=== PATIENT | female | born 1990 | race Caucasian/White ===

== ENCOUNTER 2019-11-02 20:51 | Inpatient (IN) | payer OTHER ==
[2019-11-02 22:24] LABS: BLOOD UREA NITROGEN,BUN 12 mg/dL (7.0-18.0); CARBON DIOXIDE,CO2 19.3 mmol/L (21.0-32.0); CHLORIDE,CL 106 mmol/L (98-107); GLUCOSE RANDOM 94 mg/dL (74-106); POTASSIUM,K 4.1 mmol/L (3.5-5.1); SODIUM,NA 139 mmol/L (136-145)
[2019-11-03] MEDS: Lactated Ringers 1,000 ML IV SCH ×4 (00:30→12:01)
[2019-11-03] MEDS ORDERED: Sodium Chloride 0.9% 10 ML Syringe FLUSH PRN (00:34)
[2019-11-03] MEDS ORDERED: Sodium Chloride 0.9% 10 ML SDV IV PRN (00:34)
[2019-11-03] MEDS ORDERED: Citric Acid/Sodium Citrate Solution 30 ML Cup PO ONE (00:34)
[2019-11-03] MEDS ORDERED: Sodium Chloride 0.9% 2.5 ML Syringe FLUSH PRN (00:34)
[2019-11-03] MEDS ORDERED: Oxytocin/0.9 % Sodium Chloride 30 UNIT/500 ML BAG IV SCH (00:45)
[2019-11-03] MEDS ORDERED: Morphine PF 10 MG/10 ML SDV ONE (00:57)
[2019-11-03] MEDS ORDERED: Oxytocin 10 Units/1 ML SDV ONE ×2 (01:04→02:28)
[2019-11-03] MEDS ORDERED: Phenylephrine/Normal Saline 100 MCG/ML 10 ML Syringe ONE ×2 (01:04→02:19)
[2019-11-03] MEDS ORDERED: Ondansetron 4 MG/2 ML SDV ONE (01:04)
[2019-11-03] MEDS ORDERED: Acetaminophen/oxyCODONE 325-5 MG Tab PO PRN ×3 (01:15→04:45)
[2019-11-03] MEDS ORDERED: fentaNYL 100 MCG/2 ML SDV IVPUSH PRN (01:15)
[2019-11-03] MEDS ORDERED: Nalbuphine 10 MG/1 ML Vial IVPUSH PRN (01:15)
--- NOTE | 2019-11-03 01:15 | PCM.PREANE ---
Preanesthetic Assessment - Anesthesia/Transfusion/Family Hx Anesthesia History: Prior Anesthesia Without Reaction Family History of Anesthesia Reaction: No - Review of Systems General: No Symptoms Pulmonary: No Symptoms Cardiovascular: No Symptoms Gastrointestinal: No Symptoms Neurological: No Symptoms Other: Reports: None - Physical Assessment NPO Status Date: 11/02/19 NPO Status Time: 18:00 Height: 5 ft 8 in Weight: 127.006 kg ASA Class: 2 Airway Class: Mallampati = 2 Dentition: Reports: Normal Dentition ROM/Head Extension: Full Lungs: Clear to Auscultation, Normal Respiratory Effort Cardiovascular: Regular Rate, Regular Rhythm - Lab Values: Laboratory Last Values WBC 20.80 K/uL (4.0-11.0) H 11/02/19 21:55 RBC 4.55 M/uL (4.30-5.90) 11/02/19 21:55 Hgb 13.1 g/dL (12.0-16.0) 11/02/19 21:55 Hct 38.1 % (36.0-46.0) 11/02/19 21:55 MCV 83.7 fL (80.0-98.0) 11/02/19 21:55 MCH 28.8 pg (27.0-32.0) 11/02/19 21:55 MCHC 34.4 g/dL (31.0-37.0) 11/02/19 21:55 RDW Std Deviation 41.3 fl (28.0-62.0) 11/02/19 21:55 RDW Coeff of Chemo 14 % (11.0-15.0) 11/02/19 21:55 Plt Count 333 K/uL (150-400) 11/02/19 21:55 MPV 10.30 fL (7.40-12.00) 11/02/19 21:55 Nucleated RBC % 0.0 /100WBC 11/02/19 21:55 Nucleated RBCs # 0 K/uL 11/02/19 21:55 Sodium 139 mmol/L (136-145) 11/02/19 21:55 Potassium 4.1 mmol/L (3.5-5.1) 11/02/19 21:55 Chloride 106 mmol/L (98-107) 11/02/19 21:55 Carbon Dioxide 19.3 mmol/L (21.0-32.0) L 11/02/19 21:55 BUN 12 mg/dL (7.0-18.0) 11/02/19 21:55 Creatinine 0.7 mg/dL (0.6-1.0) 11/02/19 21:55 Est Cr Clr Drug Dosing 117.47 mL/min 11/02/19 21:55 Estimated GFR (MDRD) > 60.0 ml/min 11/02/19 21:55 Glucose 94 mg/dL (74-106) 11/02/19 21:55 Uric Acid 6.8 mg/dL (2.6-7.2) 11/02/19 21:55 Calcium 8.9 mg/dL (8.5-10.1) 11/02/19 21:55 Total Bilirubin 0.1 mg/dL (0.2-1.0) L 11/02/19 21:55 AST 9 IU/L (15-37) L 11/02/19 21:55 ALT 11 IU/L (14-63) L 11/02/19 21:55 Alkaline Phosphatase 105 U/L (46-116) 11/02/19 21:55 Total Protein 6.8 g/dL (6.4-8.2) 11/02/19 21:55 Albumin 2.8 g/dL (3.4-5.0) L 11/02/19 21:55 Globulin 4.0 g/dL (2.6-4.0) 11/02/19 21:55 Albumin/Globulin Ratio 0.7 (0.9-1.6) L 11/02/19 21:55 Urine Color YELLOW 11/02/19 21:29 Urine Appearance SLT CLOUDY 11/02/19 21:29 Urine pH 6.5 (5.0-8.0) 11/02/19 21:29 Ur Specific Grady 1.025 (1.001-1.035) 11/02/19 21:29 Urine Protein NEGATIVE mg/dL (NEGATIVE) 11/02/19 21:29 Urine Glucose (UA) NEGATIVE mg/dL (NEGATIVE) 11/02/19 21:29 Urine Ketones NEGATIVE mg/dL (NEGATIVE) 11/02/19 21:29 Urine Occult Blood NEGATIVE (NEGATIVE) 11/02/19 21:29 Urine Nitrite NEGATIVE (NEGATIVE) 02/03/20 21:29 Urine Bilirubin NEGATIVE (NEGATIVE) 11/02/19 21:29 Urine Urobilinogen 0.2 EU/dL (<2.0) 11/02/19 21:29 Ur Leukocyte Esterase TRACE (NEGATIVE) H 11/02/19 21:29 - Allergies Allergies/Adverse Reactions: Allergies Allergy/AdvReac Type Severity Reaction Status Date / Time Latex, Natural Rubber Allergy Rash Verified 11/02/19 21:26 pseudoephedrine HCl Allergy Rash Verified 11/02/19 21:26 [From [facility]] - Blood Blood Available: No - Anesthesia Plan Pre-Op Medication Ordered: None - Acknowledgements Anesthesia Type Planned: Spinal Pt an Appropriate Candidate for the Planned Anesthesia: Yes Alternatives and Risks of Anesthesia Discussed w Pt/Guardian: Yes Pt/Guardian Understands and Agrees with Anesthesia Plan: Yes Additional Comments: 36 weels. primip. brerech, elevated BPs for several weeks- on mo meds for it PLAN: spinat with it duramorph PreAnesthesia Questionnaire - Past Health History Medical/Surgical History: Denies Medical/Surgical History - Past Surgical History Other HEENT Surgeries/Procedures: sinus surgery - HOME MEDS Home Medications: Home Meds Aspirin 81 mg PO DAILY 11/02/19 [History] Cetirizine [ZyrTEC] 1 tab PO DAILY 11/02/19 [History] Pnv No.95/Ferrous Fum/Folic AC [ Tablet] 1 tab PO DAILY 11/02/19 [ History] - CURRENT (IN HOUSE) MEDS Current Meds: Current Medications Oxytocin/Sodium Chloride (Oxytocin 30 Unit/500 Ml-Ns) 30 unit in 500 mls @ 250 mls/hr IV TITRATE AMA Lactated Ringer's (Ringers, Lactated) 1,000 mls @ 500 mls/hr IV BOLUS AMA Last Admin: 11/03/19 00:30 Dose: 999 mls/hr Cefazolin Sodium/Dextrose 3 gm (/ Premix) 75 mls @ 100 mls/hr IV ONETIME ONE Stop: 11/03/19 01:42 Sodium Chloride (Saline Flush) 10 ml FLUSH ASDIRECTED PRN PRN Reason: Keep Vein Open Sodium Chloride (Saline Flush) 2.5 ml FLUSH ASDIRECTED PRN PRN Reason: Keep Vein Open Sodium Chloride (Normal Saline) 10 ml IV ASDIRECTED PRN PRN Reason: IV Use Discontinued Medications Citric Acid/Sodium Citrate (Bicitra Solution) 30 ml PO ONETIME ONE Stop: 11/03/19 00:35 Last Admin: 11/03/19 01:11 Dose: 30 ml Morphine Sulfate (Duramorph Pf) Confirm Administered Dose 10 mg .ROUTE .STK-MED ONE Stop: 11/03/19 00:58 Ondansetron HCl (Zofran) Confirm Administered Dose 4 mg .ROUTE .STK-MED ONE Stop: 11/03/19 01:05 Oxytocin (Pitocin) Confirm Administered Dose 20 unit .ROUTE .STK-MED ONE Stop: 11/03/19 01:05 Phenylephrine HCl (Phenylephrine In Ns 100 Mcg/Ml) Confirm Administered Dose 1 mg .ROUTE .STK-MED ONE Stop: 11/03/19 01:05
[2019-11-03] MEDS ORDERED: ceFAZolin 1 GM Vial ONE (01:27)
[2019-11-03] MEDS ORDERED: Sodium Chloride 0.9% 20 ML ONE (01:27)
[2019-11-03] MEDS ORDERED: Midazolam 1 MG/ML 2 ML SDV ONE ×2 (02:53→03:12)
[2019-11-03] MEDS ORDERED: fentaNYL 100 MCG/2 ML SDV ONE ×2 (03:11→04:02)
[2019-11-03] MEDS ORDERED: Propofol 200 MG/20 ML SDV ONE ×3 (03:24→04:02)
--- NOTE | 2019-11-03 04:08 | CR ---
Indication: Missing lap sponge during Caesarean section Technique: Abdomen 1 view, 2 films Comparison: None Findings/Impression: Two submitted images show a hemostat overlying the right hemipelvis and a linear density overlying the L5 vertebral body consistent with a radiopaque foreign body/sponge. Dictated by Randolph Berry MD @ Nov 03 2019 4:03AM Signed by Dr. Randolph Berry @ Nov 03 2019 4:08AM
[2019-11-03] MEDS ORDERED: Tranexamic Acid 1,000 MG in Sodium Chloride 0.9% 100 ML IV PRN (04:45)
[2019-11-03] MEDS ORDERED: Bisacodyl 10 MG Supp RECTAL PRN (04:45)
[2019-11-03] MEDS ORDERED: Misoprostol 200 MCG Tab RECTAL PRN (04:45)
[2019-11-03] MEDS ORDERED: Lanolin 100% Cream 7 GM Tube TOP PRN (04:45)
[2019-11-03] MEDS ORDERED: Oxytocin/Lactated Ringers 30 UNIT/500 ML BAG IV SCH (04:45)
[2019-11-03] MEDS ORDERED: Methylergonovine 0.2 MG/1 ML Amp IM PRN (04:45)
[2019-11-03] MEDS ORDERED: diphenhydrAMINE 50 MG/ML SDV IVPUSH PRN (04:45)
[2019-11-03] MEDS ORDERED: Ondansetron 4 MG/2 ML SDV IVPUSH PRN (04:45)
[2019-11-03] MEDS ORDERED: Oxytocin 10 Units/1 ML SDV IM PRN (04:45)
--- NOTE | 2019-11-03 04:55 | PCM.OPNOTE ---
- General Post-Op/Procedure Note Date of Surgery/Procedure: 11/03/19 Operative Procedure(s): Primary lower transverse Findings: Live female delivered at 220am , 7/9 weight 2710g Pre Op Diagnosis: 29yo @ 36w3d with. Superimposed Preclampsia with severe features. Breech presentation Post-Op Diagnosis: same Anesthesia Technique: Spinal Primary Surgeon: Latricia Fischer Anesthesia Provider: Tamanna Aden Gas Meter Installer: Trupti Mortensen Pathology: Placenta Fluid Replacement, Intraop: 2,200 Output, Urine Amount: 300 EBL in mLs: 100 Complications: None Condition: Good
--- NOTE | 2019-11-03 05:07 | PCM.POSTAN ---
POST ANESTHESIA ASSESSMENT - MENTAL STATUS Mental Status: Alert, Oriented - RESPIRATORY Respiratory Status: Respiratory Rate WNL, Airway Patent, O2 Saturation Stable - CARDIOVASCULAR CV Status: Pulse Rate WNL, Blood Pressure Stable - GASTROINTESTINAL GI Status: No Symptoms - POST OP HYDRATION Hydration Status: Adequate & Stable
--- NOTE | 2019-11-03 06:11 | OR ---
SURGEON: LIANNE YOUNG DATE OF PROCEDURE:11/04/2019 PREOPERATIVE DIAGNOSIS: A 29-year-old, G2, P-0-0-1-0 at 36 weeks 3 days with superimposed preeclampsia Breech presentation. POSTOPERATIVE DIAGNOSIS: A 29-year-old, G2, P-0-0-1-0 at 36 weeks 3 days with Superimposed preeclampsia with severe features Breech presentation. PROCEDURE: Primary low segment section. ESTIMATED BLOOD LOSS: 1000. IV FLUIDS: 2200. URINE OUTPUT: 300. ANESTHESIA: Spinal. ANESTHESIOLOGIST: Dr. Smith COMPLICATIONS: None NOTES AND FINDING: A live female delivered in breech presentation at 2:20 a.m., score 7 and 9. weight 2840g Also, there was a missing lap in the right lumbar region , which was confirmed to be in the abdomen. The lap was retrieved in the right lumbar region, and lap count was then complete. BRIEF HISTORY: The patient is a 29-year-old, G2, P0-0-1-0 at 36 weeks 3 days, who has been followed for chronic hypertension. She was placed on aspirin for preclampsia prophylaxis. She had uncomplicated course. However,at last visit 1 week ago, she developed increasing blood pressure. She had received a dose of steroids. Her blood pressures were ranging between 130s to 140s/80s - 90s At this time, she was asymptomatic. The patient called back today and BPs 130s- 160s/80 - 90s and said she was having headaches and blurry vision and right upper quadrant pain. PIH labs were done which were normal and as a result of this, the patient was counseled for a because the baby was in breech presentation. She declined an ECV. She was explained the risks, benefits, and alternatives and she decided to proceed. DESCRIPTION OF PROCEDURE: The patient was taken to the operating room where spinal anesthesia was performed without difficulty. She was prepared and draped in the dorsal supine position with a leftward tilt. A Pfannenstiel skin incision was made with a scalpel and carried down to the fascia with the Bovie. The fascia was incised and extended upwards and laterally. The rectus muscle was in the midline, down to the level of the pubic symphysis. The peritoneum was entered in with the aid of the hemostat and then Metzenbaum scissors. The peritoneum was exposed and extended laterally to expose the bladder reflection. The Bjorn retractor was placed in to give good visualization of the lower uterine segment. The bladder flap was created. The lower uterine incision was made and extended with the bandage scissors. The infant was noted to be footling breech and was extracted without any difficulty. Delayed cord clamping was observed. The cord was clamped and cord blood gases were obtained. The placenta was delivered via manual massage of the uterine fundus. The uterine cavity was then cleaned with moist laparotomy sponges to remove all membranes. Uterus was closed in 2 layers, 1st layer was an interlocking layer with 0 Vicryl. The 2nd layer was with 0 Monocryl. The adnexa were inspected, was noted to be normal. The right and left ovaries were normal. Hemostasis was noted. The Bjorn retractor was removed. The gutters were cleaned with moist laparotomy sponges. The peritoneum was then closed with 2-0 Vicryl and the muscle was approximated in the midline raphe with 0 Vicryl also. The sponge count was done and was noted to be incomplete. It was looked for throughout the operating room and was not found. So x-ray was ordered and was noted to be in the right lumbar region. The peritoneum was opened and the lap sponge was retrieved. The peritoneum was then closed again after lap count was complete. The peritoneum was approximated. The muscle was approximated in the raphe with 2-0 Vicryl, and the fascia was then closed with 0 Vicryl in a continuous fashion. The subcutaneous fat was closed with plain gut and the skin was closed with 3-0 Monocryl on a Vikas needle. Sabrina dressing was placed on the incision. All instrument and lap counts were correct x2. The patient tolerated the procedure well and was taken to the Labor and Delivery suite in stable condition. PEPE RODGERS /[id number] ALBERT
[2019-11-03] MEDS: Ketorolac 30 MG/ML SDV IVPUSH SCH ×3 (06:32→17:41)
--- NOTE | 2019-11-03 09:08 | PCM48HPAN ---
Post Anesthesia Note - EVALUATION WITHIN 48HRS OF ANESTHETIC Vital Signs in Normal Range: Yes Patient Participated in Evaluation: Yes Respiratory Function Stable: Yes Airway Patent: Yes Cardiovascular Function Stable: Yes Hydration Status Stable: Yes Pain Control Satisfactory: Yes Nausea and Vomiting Control Satisfactory: Yes Mental Status Recovered: Yes Vital Signs: Last Vital Signs Temp 36.0 C 11/03/19 08:00 Pulse 59 L 11/03/19 08:00 Resp 18 11/03/19 08:00 BP 101/49 L 11/03/19 08:00 Pulse Ox 96 11/03/19 08:00
[2019-11-03] MEDS: Docusate Sodium 100 MG Cap PO SCH ×2 (11:39→22:29)
[2019-11-04] MEDS: Ketorolac 30 MG/ML SDV IVPUSH SCH ×2 (00:11→05:00)
--- NOTE | 2019-11-04 08:56 | PCM.PNPP ---
- General Info Date of Service: 11/04/19 Functional Status: Reports: Pain Controlled, Tolerating Diet, Ambulating, Urinating - Review of Systems General: Reports: No Symptoms HEENT: Reports: No Symptoms Pulmonary: Reports: No Symptoms Cardiovascular: Reports: No Symptoms Gastrointestinal: Reports: No Symptoms Genitourinary: Reports: No Symptoms Musculoskeletal: Reports: No Symptoms Skin: Reports: No Symptoms Neurological: Reports: No Symptoms Psychiatric: Reports: No Symptoms - Patient Data Vital Signs - Most Recent: Last Vital Signs Temp 36.5 C 11/04/19 07:30 Pulse 79 11/04/19 07:30 Resp 17 11/04/19 07:30 BP 138/61 11/04/19 07:30 Pulse Ox 97 11/04/19 07:30 Weight - Most Recent: 280 lb I&O - Last 24 Hours: Intake & Output 11/03/19 11/04/19 11/04/19 22:59 06:59 14:59 Output Total 450 900 Balance -450 -900 Lab Results - Last 24 Hours: Laboratory Results - last 24 hr 11/04/19 Range/Units 05:45 Hgb 10.7 L (12.0-16.0) g/dL Hct 31.9 L (36.0-46.0) % Med Orders - Current: Current Medications Bisacodyl (Dulcolax) 10 mg RECTAL ONETIME PRN PRN Reason: Constipation Diphenhydramine HCl (Benadryl) 25 mg IVPUSH Q6H PRN PRN Reason: Itching or Nausea Docusate Sodium (Colace) 100 mg PO BID [facility] Last Admin: 11/03/19 22:29 Dose: 100 mg Emollient Ointment (Lansinoh Hpa) 0 gm TOP ASDIRECTED PRN PRN Reason: Sore Nipples Oxytocin/Sodium Chloride (Oxytocin 30 Unit/500 Ml-Ns) 30 unit in 500 mls @ 250 mls/hr IV TITRATE [facility] Lactated Ringer's (Ringers, Lactated) 1,000 mls @ 500 mls/hr IV BOLUS [facility] Last Admin: 11/03/19 01:21 Dose: 999 mls/hr Lactated Ringer's (Ringers, Lactated) 1,000 mls @ 125 mls/hr IV ASDIRECTED [facility] Last Admin: 11/03/19 12:01 Dose: 125 mls/hr Oxytocin/Lactated Ringer's (Pitocin In Lr 30 Units/500 Ml) 30 unit in 500 mls @ 2 mls/hr IV TITRATE AMA; Protocol Tranexamic Acid 1,000 mg/ (Sodium Chloride) 110 mls @ 660 mls/hr IV ONETIME PRN PRN Reason: Bleeding Ibuprofen (Motrin) 800 mg PO Q8H PRN PRN Reason: mild pain or fever Methylergonovine Maleate (Methergine) 0.2 mg IM ONETIME PRN PRN Reason: Excessive Vaginal Bleeding Misoprostol (Cytotec) 1,000 mcg RECTAL ONETIME PRN PRN Reason: excessive bleeding Ondansetron HCl (Zofran) 4 mg IVPUSH Q4H PRN PRN Reason: Nausea/Vomiting Last Admin: 11/03/19 11:22 Dose: 4 mg Oxycodone/Acetaminophen (Percocet 325-5 Mg) 1 tab PO ONETIME PRN PRN Reason: Pain (moderate 4-6) Oxycodone/Acetaminophen (Percocet 325-5 Mg) 1 tab PO Q4H PRN PRN Reason: Pain (moderate 4-6) Oxycodone/Acetaminophen (Percocet 325-5 Mg) 2 tab PO Q4H PRN PRN Reason: Pain (moderate 4-6) Oxytocin (Pitocin) 10 unit IM ASDIRECTED PRN PRN Reason: Excessive Vaginal Bleeding Sodium Chloride (Saline Flush) 10 ml FLUSH ASDIRECTED PRN PRN Reason: Keep Vein Open Sodium Chloride (Saline Flush) 2.5 ml FLUSH ASDIRECTED PRN PRN Reason: Keep Vein Open Sodium Chloride (Normal Saline) 10 ml IV ASDIRECTED PRN PRN Reason: IV Use Discontinued Medications Cefazolin Sodium (Ancef) Confirm Administered Dose 1 gm .ROUTE .STK-MED ONE Stop: 11/03/19 01:28 Citric Acid/Sodium Citrate (Bicitra Solution) 30 ml PO ONETIME ONE Stop: 11/03/19 00:35 Last Admin: 11/03/19 01:11 Dose: 30 ml Fentanyl (Sublimaze) 50 mcg IVPUSH Q5M PRN PRN Reason: Pain (severe 7-10) Stop: 11/04/19 01:16 Fentanyl (Sublimaze) Confirm Administered Dose 100 mcg .ROUTE .STK-MED ONE Stop: 11/03/19 03:12 Fentanyl (Sublimaze) Confirm Administered Dose 100 mcg .ROUTE .STK-MED ONE Stop: 11/03/19 04:03 Cefazolin Sodium/Dextrose 3 gm (/ Premix) 75 mls @ 100 mls/hr IV ONETIME ONE Stop: 11/03/19 01:42 Sodium Chloride (Normal Saline) Confirm Administered Dose 20 mls @ as directed .ROUTE .STK-MED ONE Stop: 11/03/19 01:28 Ketorolac Tromethamine (Toradol) 30 mg IVPUSH Q6H AMA Stop: 11/04/19 05:01 Last Admin: 11/04/19 05:00 Dose: 30 mg Midazolam HCl (Versed 1 Mg/Ml) Confirm Administered Dose 2 mg .ROUTE .STK-MED ONE Stop: 11/03/19 02:54 Midazolam HCl (Versed 1 Mg/Ml) Confirm Administered Dose 2 mg .ROUTE .STK-MED ONE Stop: 11/03/19 03:13 Morphine Sulfate (Duramorph Pf) Confirm Administered Dose 10 mg .ROUTE .STK-MED ONE Stop: 11/03/19 00:58 Nalbuphine HCl (Nubain) 2.5 mg IVPUSH Q3H PRN PRN Reason: Pruritis Stop: 11/04/19 01:16 Ondansetron HCl (Zofran) Confirm Administered Dose 4 mg .ROUTE .STK-MED ONE Stop: 11/03/19 01:05 Oxytocin (Pitocin) Confirm Administered Dose 20 unit .ROUTE .STK-MED ONE Stop: 11/03/19 01:05 Oxytocin (Pitocin) Confirm Administered Dose 10 unit .ROUTE .STK-MED ONE Stop: 11/03/19 02:29 Phenylephrine HCl (Phenylephrine In Ns 100 Mcg/Ml) Confirm Administered Dose 1 mg .ROUTE .STK-MED ONE Stop: 11/03/19 01:05 Phenylephrine HCl (Phenylephrine In Ns 100 Mcg/Ml) Confirm Administered Dose 1 mg .ROUTE .STK-MED ONE Stop: 11/03/19 02:20 Propofol (Diprivan 20 Ml) Confirm Administered Dose 200 mg .ROUTE .STK-MED ONE Stop: 11/03/19 03:25 Propofol (Diprivan 20 Ml) Confirm Administered Dose 200 mg .ROUTE .STK-MED ONE Stop: 11/03/19 03:45 Propofol (Diprivan 20 Ml) Confirm Administered Dose 200 mg .ROUTE .STK-MED ONE Stop: 11/03/19 04:03 - Interaction Infant Disposition, : at Bedside Infant Interaction: Holding Infant Feeding: Breastfed ; Nursed Well Support Person: Significant Other - Recovery Exam Fundal Tone: Firm Fundal Level: 1 Fingerbreadths Below Umbilicus Fundal Placement: Midline Lochia Amount: Scant Lochia Color: Rubra/Red Perineum Description: Intact, Minimal Bruising/Swelling Episiotomy/Laceration: None Bladder Status: Voiding Urinary Elimination: Voided - Exam General: Alert, Oriented, Cooperative, No Acute Distress HEENT: Pupils Equal, Pupils Reactive Neck: Supple, Trachea Midline, No JVD Lungs: Normal Respiratory Effort GI/Abdominal Exam: Soft, Non-Tender, No Organomegaly, No Distention Extremities: Normal Inspection, Normal Range of Motion, Non-Tender, No Pedal Edema Skin: Warm, Dry, Intact Wound/Incisions: Healing Well, Dressing Dry and Intact Neurological: No New Focal Deficit Psy/Mental Status: Alert, Normal Affect, Normal Mood - Problem List Review Problem List Initiated/Reviewed/Updated: Yes - Assessment Assessment:: 29yo POD1 s/p primary LTCS for breech presentation and preeclampsia with severe features. Stable and recovering well. - Plan Plan:: - VSS, BP normotensive to mild range, asymptomatic - Hgb 10.3, bleeding minimal, denies s/s of anemia. Advise to continue PNV and iron supplement - tolerating PO, ambulating and passing flatus - MONIQUE wound vac with good seal - continue to monitor BP. Plan for discharge home tomorrow if stable
[2019-11-04] MEDS ORDERED: Ibuprofen 800 MG Tab PO PRN (11:00)
[2019-11-05] MEDS: Docusate Sodium 100 MG Cap PO SCH (00:09)
[2019-11-05 08:12] VITALS: BP 145/70; PULSE 93
--- NOTE | 2019-11-05 11:02 | PCM.PNPP ---
- General Info Date of Service: 11/05/19 Functional Status: Reports: Pain Controlled, Tolerating Diet, Ambulating, Urinating - Review of Systems General: Reports: No Symptoms HEENT: Reports: No Symptoms Pulmonary: Reports: No Symptoms Cardiovascular: Reports: No Symptoms Gastrointestinal: Reports: No Symptoms Genitourinary: Reports: No Symptoms Musculoskeletal: Reports: No Symptoms Skin: Reports: No Symptoms Neurological: Reports: No Symptoms Psychiatric: Reports: No Symptoms - Patient Data Vital Signs - Most Recent: Last Vital Signs Temp 36.4 C 11/05/19 07:25 Pulse 93 11/05/19 07:25 Resp 18 11/05/19 07:25 BP 145/70 H 11/05/19 07:25 Pulse Ox 100 11/05/19 07:25 Weight - Most Recent: 280 lb Lab Results - Last 24 Hours: Laboratory Results - last 24 hr 11/03/19 Range/Units 01:25 RPR Non-Reac (Non-Reac) Med Orders - Current: Current Medications Bisacodyl (Dulcolax) 10 mg RECTAL ONETIME PRN PRN Reason: Constipation Diphenhydramine HCl (Benadryl) 25 mg IVPUSH Q6H PRN PRN Reason: Itching or Nausea Docusate Sodium (Colace) 100 mg PO BID AMA Last Admin: 11/05/19 00:09 Dose: Not Given Emollient Ointment (Lansinoh Hpa) 0 gm TOP ASDIRECTED PRN PRN Reason: Sore Nipples Last Admin: 11/05/19 07:33 Dose: 7 gm Oxytocin/Sodium Chloride (Oxytocin 30 Unit/500 Ml-Ns) 30 unit in 500 mls @ 250 mls/hr IV TITRATE AMA Lactated Ringer's (Ringers, Lactated) 1,000 mls @ 500 mls/hr IV BOLUS AMA Last Admin: 11/03/19 01:21 Dose: 999 mls/hr Lactated Ringer's (Ringers, Lactated) 1,000 mls @ 125 mls/hr IV ASDIRECTED AMA Last Admin: 11/03/19 12:01 Dose: 125 mls/hr Oxytocin/Lactated Ringer's (Pitocin In Lr 30 Units/500 Ml) 30 unit in 500 mls @ 2 mls/hr IV TITRATE AMA; Protocol Tranexamic Acid 1,000 mg/ (Sodium Chloride) 110 mls @ 660 mls/hr IV ONETIME PRN PRN Reason: Bleeding Ibuprofen (Motrin) 800 mg PO Q8H PRN PRN Reason: mild pain or fever Methylergonovine Maleate (Methergine) 0.2 mg IM ONETIME PRN PRN Reason: Excessive Vaginal Bleeding Misoprostol (Cytotec) 1,000 mcg RECTAL ONETIME PRN PRN Reason: excessive bleeding Ondansetron HCl (Zofran) 4 mg IVPUSH Q4H PRN PRN Reason: Nausea/Vomiting Last Admin: 11/03/19 11:22 Dose: 4 mg Oxycodone/Acetaminophen (Percocet 325-5 Mg) 1 tab PO ONETIME PRN PRN Reason: Pain (moderate 4-6) Oxycodone/Acetaminophen (Percocet 325-5 Mg) 1 tab PO Q4H PRN PRN Reason: Pain (moderate 4-6) Oxycodone/Acetaminophen (Percocet 325-5 Mg) 2 tab PO Q4H PRN PRN Reason: Pain (moderate 4-6) Oxytocin (Pitocin) 10 unit IM ASDIRECTED PRN PRN Reason: Excessive Vaginal Bleeding Sodium Chloride (Saline Flush) 10 ml FLUSH ASDIRECTED PRN PRN Reason: Keep Vein Open Sodium Chloride (Saline Flush) 2.5 ml FLUSH ASDIRECTED PRN PRN Reason: Keep Vein Open Sodium Chloride (Normal Saline) 10 ml IV ASDIRECTED PRN PRN Reason: IV Use Discontinued Medications Cefazolin Sodium (Ancef) Confirm Administered Dose 1 gm .ROUTE .STK-MED ONE Stop: 11/03/19 01:28 Citric Acid/Sodium Citrate (Bicitra Solution) 30 ml PO ONETIME ONE Stop: 11/03/19 00:35 Last Admin: 11/03/19 01:11 Dose: 30 ml Fentanyl (Sublimaze) 50 mcg IVPUSH Q5M PRN PRN Reason: Pain (severe 7-10) Stop: 11/04/19 01:16 Fentanyl (Sublimaze) Confirm Administered Dose 100 mcg .ROUTE .STK-MED ONE Stop: 11/03/19 03:12 Fentanyl (Sublimaze) Confirm Administered Dose 100 mcg .ROUTE .STK-MED ONE Stop: 11/03/19 04:03 Cefazolin Sodium/Dextrose 3 gm (/ Premix) 75 mls @ 100 mls/hr IV ONETIME ONE Stop: 11/03/19 01:42 Sodium Chloride (Normal Saline) Confirm Administered Dose 20 mls @ as directed .ROUTE .STK-MED ONE Stop: 11/03/19 01:28 Ketorolac Tromethamine (Toradol) 30 mg IVPUSH Q6H AMA Stop: 11/04/19 05:01 Last Admin: 11/04/19 05:00 Dose: 30 mg Midazolam HCl (Versed 1 Mg/Ml) Confirm Administered Dose 2 mg .ROUTE .STK-MED ONE Stop: 11/03/19 02:54 Midazolam HCl (Versed 1 Mg/Ml) Confirm Administered Dose 2 mg .ROUTE .STK-MED ONE Stop: 11/03/19 03:13 Morphine Sulfate (Duramorph Pf) Confirm Administered Dose 10 mg .ROUTE .STK-MED ONE Stop: 11/03/19 00:58 Nalbuphine HCl (Nubain) 2.5 mg IVPUSH Q3H PRN PRN Reason: Pruritis Stop: 11/04/19 01:16 Ondansetron HCl (Zofran) Confirm Administered Dose 4 mg .ROUTE .STK-MED ONE Stop: 11/03/19 01:05 Oxytocin (Pitocin) Confirm Administered Dose 20 unit .ROUTE .STK-MED ONE Stop: 11/03/19 01:05 Oxytocin (Pitocin) Confirm Administered Dose 10 unit .ROUTE .STK-MED ONE Stop: 11/03/19 02:29 Phenylephrine HCl (Phenylephrine In Ns 100 Mcg/Ml) Confirm Administered Dose 1 mg .ROUTE .STK-MED ONE Stop: 11/03/19 01:05 Phenylephrine HCl (Phenylephrine In Ns 100 Mcg/Ml) Confirm Administered Dose 1 mg .ROUTE .STK-MED ONE Stop: 11/03/19 02:20 Propofol (Diprivan 20 Ml) Confirm Administered Dose 200 mg .ROUTE .STK-MED ONE Stop: 11/03/19 03:25 Propofol (Diprivan 20 Ml) Confirm Administered Dose 200 mg .ROUTE .STK-MED ONE Stop: 11/03/19 03:45 Propofol (Diprivan 20 Ml) Confirm Administered Dose 200 mg .ROUTE .STK-MED ONE Stop: 11/03/19 04:03 - Interaction Infant Disposition, : at Bedside Infant Interaction: Holding Infant Infant Feeding: Breastfed ; Nursed Well Support Person: Significant Other - Recovery Exam Fundal Tone: Firm Fundal Level: 1 Fingerbreadths Below Umbilicus Fundal Placement: Midline Lochia Amount: Scant Lochia Color: Rubra/Red Perineum Description: Intact, Minimal Bruising/Swelling Episiotomy/Laceration: None Bladder Status: Nonpalpable, Voiding Urinary Elimination: Voided - Exam General: Alert, Oriented, Cooperative, No Acute Distress HEENT: Pupils Equal, Pupils Reactive Neck: Supple, Trachea Midline, No JVD Lungs: Normal Respiratory Effort GI/Abdominal Exam: Soft, Non-Tender, No Organomegaly, No Distention Extremities: Normal Inspection, Normal Range of Motion, Non-Tender, No Pedal Edema Skin: Warm, Dry, Intact Neurological: No New Focal Deficit Psy/Mental Status: Alert, Normal Affect, Normal Mood - Problem List Review Problem List Initiated/Reviewed/Updated: Yes - My Orders Last 24 Hours: My Active Orders 11/05/19 10:57 Ready for Discharge [RC] PER UNIT ROUTINE - Assessment Assessment:: 29yo POD2 s/p primary LTCS for breech presentation and preeclampsia with severe features. Stable and recovering well. - Plan Plan:: - VSS, BP normotensive to mild range, asymptomatic - Hgb 10.3, bleeding minimal, denies s/s of anemia. Advise to continue PNV and iron supplement - tolerating PO, ambulating and passing flatus - MONIQUE wound vac with good seal - Patient will continue to monitor BP at home, discussed precautions. Plan for discharge home today
== END 2019-11-05 12:55 | disposition home or self-care (01) | DRG 788 ==
LOC: MW.OBCHECK 20:51 → MW.OB 20:51 → MW.OBCHECK 11-03 00:34 → MW.OB 11-03 00:34 → OBSVTOIN 11-03 00:35 → MW.OB 11-03 07:02
PROVIDERS: ADMIT Obstetrics & Gynecology; ATTEND Obstetrics & Gynecology
PROC: 10D00Z1 Extraction of Products of Conception, Low, Open Approach (ICD-10-PCS; principal; 2019-11-03)
DX: O32.1XX0 Maternal care for breech presentation, not applicable or unspecified (principal); O14.14 Severe pre-eclampsia complicating childbirth; Z37.0 Single live birth; Z3A.36 36 weeks gestation of pregnancy
CPT/HCPCS: 01961; 36415; 51702; 59025; 74018; 74018-26; 80053; 81003; 84550; 85014; 85018; 85027; 86592; 86850; 86900; 86901; 88307; A9270-GY; J0690; J1885; J2250; J2270; J2370; J2405; J2590; J2704; J3010; J7120